=== PATIENT | male | born 1990 | race Caucasian/White ===

== ENCOUNTER 2022-09-02 19:22 | Emergency (ER) | payer MEDICAID ==
[~2022-09-02] VITALS: Ht 165.1 cm; Wt 52.2 kg
--- NOTE | 2022-09-02 19:25 | NUR ---
BIBA TO ER BED ALS
[2022-09-02 19:27] VITALS: BP 132/73
--- NOTE | 2022-09-02 19:27 | NUR ---
Dr. Cosme examining patient.
--- NOTE | 2022-09-02 19:28 | NUR ---
Patient's cargiver at bedside.
--- NOTE | 2022-09-02 19:30 | NUR ---
PT BIBA FOR SEIZURE ACTIVITY PER STAFF AT NURSING FACILITY, PT HAD MULTIPLE SEIZURES TODAY, ONE EPISODE DURATION WAS 4MINS LONG, PT HX- SEIZURES. SEIZURES USUALLY DO NOT LAST LONGER THAN A FEW SECONDS. PT HAS NEUROLOGIST KARAN NEXT MONTH. SEIZURE PADS PLACED. CAREGIVER AT BEDSIDE.
[2022-09-02] MEDS ORDERED: LACO150T2 PO (19:49)
[2022-09-02] MEDS ORDERED: QUET100T PO (19:49)
[2022-09-02] MEDS ORDERED: VALP-22 PO (19:49)
[2022-09-02] MEDS ORDERED: MULT-2253 PO (19:49)
[2022-09-02] MEDS ORDERED: LEVE750T3 PO (19:49)
[2022-09-02] MEDS ORDERED: SYN.05 PO (19:49)
--- NOTE | 2022-09-02 19:49 | NUR ---
Med-Rec reviewed/
[2022-09-02 20:02] LABS: BASOPHILS % (AUTO) 0.6 % (0.0-2.0); EOSINOPHILS # (AUTO) 0.1 K/uL (0-0.4); HEMOGLOBIN 13.1 g/dL (12.0-18.0); LYMPHOCYTES # (AUTO) 2.3 K/uL (2.0-11.5); LYMPHOCYTES % (AUTO) 34.2 % (20.5-51.1); MEAN CORPUSCULAR HEMOGLOBIN 29 pg (27-31); MEAN CORPUSCULAR HGB CONC 34 g/dL (33-37); MEAN CORPUSCULAR VOLUME 85.2 fL (80-94); MONOCYTES # (AUTO) 0.9 K/uL (0.8-1.0); MONOCYTES % (AUTO) 12.9 % (1.7-9.3); NEUTROPHILS # (AUTO) 3.4 K/uL (1.8-7.7); NEUTROPHILS % (AUTO) 51.3 % (42.2-75.2); PLATELET COUNT (AUTO) 132 K/uL (140-450); RED BLOOD CELL COUNT(AUTO) 4.58 MIL/uL (4.20-6.10); RED CELL DISTRIBUTION WIDTH 14.7 % (11.6-13.7); WHITE BLOOD COUNT (AUTO) 6.6 K/uL (4.8-10.8)
[2022-09-02] MEDS ORDERED: levETIRAcetam 1,000 MG in NACL 0.9% 100 ML IV ONE (20:15)
[2022-09-02 20:18] LABS: ALBUMIN 2.9 g/dL (3.4-5.0); ANION GAP 12.7 (8-16); CARBON DIOXIDE 26.8 mmol/L (21-32); POTASSIUM 5.5 mmol/L (3.5-5.1); TOTAL BILIRUBIN 0.3 mg/dL (0.0-1.0)
[2022-09-02] MEDS ORDERED: NACL 0.9% 500 ML IV ONE ×2 (20:35)
[2022-09-02] MEDS ORDERED: levETIRAcetam 100 MG/ML VIAL IV ONE (20:58)
--- NOTE | 2022-09-02 22:16 | NUR ---
Note obinna in EDM - 09/02/22 at [id number] BRYANT NOTIFIED PT BREATHING RATE AT 40. PT PLACED ON BIPAP BY RT CABALLERO. DR BRYANT AT BEDSIDE.
--- NOTE | 2022-09-02 22:30 | NUR ---
PT RESTING IN BED, NO SEIZURE ACTIVITY OBSERVED. CAREGIVER AT BEDSIDE, PT CONTINUES ON ENROLLMENT REPRESENTATIVE.
[2022-09-02 23:40] VITALS: BP 110/67
--- NOTE | 2022-09-02 23:55 | NUR ---
Patient discharged with v/s stable. Written and verbal after care instructions given and explained. Patient verbalized understanding. Wheel Chair Assisted with RN AND by caregiver. All questions addressed prior to discharge. Advised to follow up with PMD.
== END 2022-09-02 23:40 | disposition home or self-care (01) ==
LOC: MED 19:22
DX: G40.909 Epilepsy, unspecified, not intractable, without status epilepticus (principal)
CPT/HCPCS: 36415; 80053; 80173; 84132; 85025; 96365; 96366; 99285; J1953; J7030